=== PATIENT | female | born 1950 | race Caucasian/White ===

== ENCOUNTER 2019-07-12 11:54 | Emergency (ER) | payer MEDICARE, OTHER ==
[2019-07-12 12:24] VITALS: BP 177/102; PULSE 92
--- NOTE | 2019-07-12 13:10 | EDM.PDOC ---
ED HPI GENERAL MEDICAL PROBLEM - General Chief Complaint: Upper Extremity Injury/Pain Stated Complaint: RT HAND INJURY Time Seen by Provider: 07/12/19 12:18 Source of Information: Reports: Patient History Limitations: Reports: No Limitations - History of Present Illness INITIAL COMMENTS - FREE TEXT/NARRATIVE: The patient presents with right hand pain. She was kicked by a cow yesterday. She is right handed. Onset: Sudden Duration: Day(s): (2) Location: Reports: Upper Extremity, Right (hand) Quality: Reports: Sharp Severity: Moderate Improves with: Reports: Immobilization Worsens with: Reports: Movement Context: Reports: Trauma (kicked by a cow) Associated Symptoms: Reports: No Other Symptoms Treatments REGISTERED CLINICAL DIETITIAN: Reports: Other (see below) Other Treatments REGISTERED CLINICAL DIETITIAN: tylneol Right Hand Pain Score (Numeric/FACES): 8 - Related Data Allergies Allergy/AdvReac Type Severity Reaction Status Date / Time No Known Allergies Allergy Verified 04/11/14 13:43 Home Meds: Home Meds Acetaminophen/oxyCODONE [Percocet 325-5 MG] 1 - 2 tab PO Q4H PRN #5 tab [Rx] Cholecalciferol (Vitamin D3) [Vitamin D3] 1 tab PO DAILY 04/11/14 [History] Dabigatran [Pradaxa] 150 mg PO BID 30 Days cap 04/14/14 [Rx] Apixaban [Eliquis] 5 mg PO BID 07/12/19 [History] Hydrocodone/Acetaminophen [Hydrocodon-Acetaminophen 5-325] 1 - 2 each PO Q6HR PRN #10 tablet 07/12/19 [Rx] Past Medical History - Past Health History Medical/Surgical History: Denies Medical/Surgical History Cardiovascular History: Reports: Afib, Hypertension Musculoskeletal History: Reports: Other (See Below) Other Musculoskeletal History: left ankle surgery Social & Family History - Tobacco Use Smoking Status *Q: Never Smoker - Caffeine Use Caffeine Use: Reports: Coffee, Tea - Recreational Drug Use Recreational Drug Use: No Review of Systems - Review of Systems Review Of Systems: See Below Constitutional: Reports: No Symptoms Eyes: Reports: No Symptoms Ears: Reports: No Symptoms Nose: Reports: No Symptoms Mouth/Throat: Reports: No Symptoms Respiratory: Reports: No Symptoms Cardiovascular: Reports: No Symptoms GI/Abdominal: Reports: No Symptoms Genitourinary: Reports: No Symptoms Musculoskeletal: Reports: Other (right hand pain) ED EXAM, GENERAL - Physical Exam Exam: See Below Exam Limited By: No Limitations General Appearance: Alert, No Apparent Distress Ears: Normal External Exam Nose: Normal Inspection Head: Atraumatic, Normocephalic Neck: Normal Inspection Respiratory/Chest: No Respiratory Distress Extremities: Other (pain upon palpation to the right hand at the base of the thumb with a small abrasion. Good sensation and capillary refill distally.) Course - Vital Signs Last Recorded V/S: Last Vital Signs Temp 97.6 F 07/12/19 12:23 Pulse 92 07/12/19 12:23 Resp 20 07/12/19 12:23 BP 177/102 H 07/12/19 12:23 Pulse Ox 97 07/12/19 12:23 - Orders/Labs/Meds Orders: Active Orders 24 hr Category Date Time Status Hand Comp Min 3V Rt [CR] Stat Exams 07/12/19 12:27 Taken - Re-Assessments/Exams Free Text/Narrative Re-Assessment/Exam: 07/12/19 13:07 I ordered an x-ray and I do not see any fracture. I will get her in an Devyn wrap and something for pain. Departure - Departure Time of Disposition: 13:10 Disposition: Home, Self-Care 01 Condition: Good Clinical Impression: Contusion of right hand Qualifiers: Encounter type: initial encounter Qualified Code(s): S60.221A - Contusion of right hand, initial encounter - Discharge Information *PRESCRIPTION DRUG MONITORING PROGRAM REVIEWED*: No *COPY OF PRESCRIPTION DRUG MONITORING REPORT IN PATIENT VASILIY: No Prescriptions: Hydrocodone/Acetaminophen [Hydrocodon-Acetaminophen 5-325] 1 - 2 each PO Q6HR PRN #10 tablet PRN Reason: Pain Referrals: Marianna Saba PA-C [Primary Care Provider] - 1 Week Additional Instructions: Ice your hand for 15 minutes 3 times per day for 2 days. Take tylenol or motrin for pain. If that does not help try the hydrocodone. If you you are not feeling better within a week. Follow up with your provider for a repeat x- ray. Sepsis Event Note - Evaluation Sepsis Screening Result: No Definite Risk - Focused Exam Vital Signs: Vital Signs Temp Pulse Resp BP Pulse Ox 07/12/19 12:23 97.6 F 92 20 177/102 H 97 Date Exam was Performed: 07/12/19 Time Exam was Performed: 13:03 - My Orders Last 24 Hours: My Active Orders 07/12/19 12:27 Hand Comp Min 3V Rt [CR] Stat - Assessment/Plan Last 24 Hours: My Active Orders 07/12/19 12:27 Hand Comp Min 3V Rt [CR] Stat
--- NOTE | 2019-07-12 13:21 | CR ---
Right hand: 4 views the right hand were obtained. Comparison: No prior hand exam is available. Scattered joint space narrowing noted within the MCP, PIP and DIP joints. Osteophytes are noted off the DIP joints. Joint space narrowing is noted off the distal navicular bone. Osteopenia is seen. No fracture, dislocation or other bony abnormality is seen. Impression: 1. Degenerative change and osteopenia. 2. Nothing acute is appreciated on right hand exam. Diagnostic code #2 This report was dictated in MDT
== END 2019-07-12 13:30 | disposition home or self-care (01) ==
LOC: JD.ED 11:54
DX: S60.221A Contusion of right hand, initial encounter (principal); I48.91 Unspecified atrial fibrillation; I10 Essential (primary) hypertension; Z79.01 Long term (current) use of anticoagulants; W55.22XA Struck by cow, initial encounter
CPT/HCPCS: 73130-26-RT; 73130-RT; 99283; 99283-25

== ENCOUNTER 2023-09-27 08:40 | Day surgery (SDC) | payer MEDICARE, OTHER ==
[~2023-09-27 08:40] MED LIST: HYDROmorphone 0.5 MG/0.5 ML Syringe IVPUSH PRN; Lactated Ringers 1,000 ML ONE; Midazolam 1 MG/ML 2 ML SDV ONE; Ondansetron 4 MG/2 ML SDV IVPUSH PRN; Propofol 200 MG/20 ML SDV ONE; fentaNYL 100 MCG/2 ML SDV IVPUSH PRN; fentaNYL 100 MCG/2 ML SDV ONE
[2023-09-27] MEDS: Lactated Ringers 1,000 ML IV SCH (09:00)
[2023-09-27] MEDS ORDERED: Ropivacaine 0.5% 5 MG/ML 30 ML SDV ONE (09:18)
[2023-09-27] MEDS ORDERED: dexmedeTOMIDine HCl 200 MCG/2 ML SDV ONE (09:18)
[2023-09-27] MEDS ORDERED: EPINEPHrine 1 MG/ML SDV ONE (09:18)
[2023-09-27] MEDS: Pregabalin 25 MG Cap PO SCH (09:48)
[2023-09-27] MEDS: Acetaminophen 325 MG Tab PO SCH (09:48)
[2023-09-27] MEDS: oxyCODONE ER 10 MG TAB.ER PO SCH (09:48)
[2023-09-27] MEDS ORDERED: Sodium Chloride 0.9% 10 ML Syringe FLUSH PRN (10:06)
[2023-09-27] MEDS ORDERED: ceFAZolin 2 GM Vial ONE (10:15)
[2023-09-27] MEDS ORDERED: Lidocaine 1% 4 ML ONE (10:28)
[2023-09-27] MEDS ORDERED: ePHEDrine 50 MG/ML SDV ONE (10:59)
[2023-09-27] MEDS ORDERED: Ondansetron 4 MG/2 ML SDV IVPUSH PRN (11:09)
[2023-09-27] MEDS ORDERED: fentaNYL 100 MCG/2 ML SDV IVPUSH PRN (11:09)
[2023-09-27] MEDS ORDERED: HYDROmorphone 0.5 MG/0.5 ML Syringe IVPUSH PRN (11:09)
[2023-09-27] MEDS: Morphine 8 MG, EPINEPHrine 0.3 MG, Cefuroxime 750 MG, Ketorolac 30 MG, Sodium Chloride ... PRN (11:28)
[2023-09-27] MEDS: Vancomycin 1 GM SDV ONE (11:30)
[2023-09-27] MEDS ORDERED: Ondansetron 4 MG/2 ML SDV ONE (12:15)
[2023-09-27] MEDS ORDERED: Ketorolac 30 MG/ML SDV ONE (12:15)
[2023-09-27] MEDS: Tranexamic Acid 1,000 MG/10 ML Vial ONE (12:39)
[2023-09-27] MEDS: oxyCODONE 5 MG Tab PO PRN (15:16)
[2023-09-27 16:40] VITALS: BP 130/80; PULSE 74
[2023-09-27] MEDS ORDERED: Sodium Chloride 0.9% 10 ML Syringe FLUSH SCH (21:00)
== END 2023-09-27 16:35 | disposition home or self-care (01) ==
LOC: JD.SDS 08:40
PROVIDERS: ATTEND Orthopaedic Surgery
DX: M17.12 Unilateral primary osteoarthritis, left knee (principal); I10 Essential (primary) hypertension; I48.91 Unspecified atrial fibrillation; J31.0 Chronic rhinitis; H65.90 Unspecified nonsuppurative otitis media, unspecified ear; Z79.01 Long term (current) use of anticoagulants; Z79.899 Other long term (current) drug therapy
CPT/HCPCS: 0055T; 27447; 36415; 64447; 73560; 84132; 97110; 97161; A9270; C1713; C1776; J0171; J0690; J0697; J1885; J2250; J2270; J2405; J2704; J2795; J3010; J3370; J7120; 01402; 99140; J3490